=== PATIENT | female | born 1990 | race African-American/Black ===

== ENCOUNTER 2019-04-03 09:45 | Emergency (ER) | payer MEDICAID ==
[~2019-04-03] VITALS: Ht 185.4 cm; Wt 127.0 kg
[2019-04-03] MEDS ORDERED: HYDROCODONE/ACETAMINOPHEN 5/325MG TABLET PO ONE (12:30)
[2019-04-03] MEDS ORDERED: IBUPROFEN 600MG TABLET PO ONE (12:30)
[2019-04-03 14:51] VITALS: BP 158/86
== END 2019-04-03 14:53 | disposition home or self-care (01) ==
LOC: ER 09:45
DX: S10.81XA Abrasion of other specified part of neck, initial encounter (principal); Y04.0XXA Assault by unarmed brawl or fight, initial encounter; T71.9XXA Asphyxiation due to unspecified cause, initial encounter; Y93.89 Activity, other specified; F10.129 Alcohol abuse with intoxication, unspecified; Y90.9 Presence of alcohol in blood, level not specified; W18.39XA Other fall on same level, initial encounter; Y92.038 Other place in apartment as the place of occurrence of the external cause; I10 Essential (primary) hypertension
CPT/HCPCS: 70486; 70490; 81025; 99284

== ENCOUNTER 2020-09-07 23:14 | Emergency (ER) | payer MEDICAID, OTHER ==
[~2020-09-07] VITALS: Ht 185.4 cm; Wt 118.0 kg
[2020-09-07 23:22] VITALS: BP 152/88
[2020-09-07] MEDS ORDERED: ACETAMINOPHEN 325MG TABLET PO ONE (23:45)
[2020-09-08] MEDS ORDERED: IBUP-2029 MT (00:25)
== END 2020-09-08 00:39 | disposition home or self-care (01) ==
LOC: ER 23:49
DX: J02.9 Acute pharyngitis, unspecified (principal); H92.01 Otalgia, right ear; I10 Essential (primary) hypertension
CPT/HCPCS: 81025; 99282

== ENCOUNTER 2020-10-28 11:35 | Emergency (ER) | payer OTHER ==
[~2020-10-28] VITALS: Ht 185.4 cm; Wt 127.0 kg
[~2020-10-28 11:35] MED LIST: IBUP-2029 MT
[2020-10-28] MEDS ORDERED: SODIUM CHLORIDE 0.9% 1,000 ML IV ONE (12:15)
[2020-10-28] MEDS ORDERED: KETOROLAC 15MG/ML VIAL IV ONE (12:15)
[2020-10-28] MEDS ORDERED: ALBU6.7H9 INH (12:37)
[2020-10-28 12:50] VITALS: BP 153/95
== END 2020-10-28 12:54 | disposition home or self-care (01) ==
LOC: ER 11:35
DX: U07.1 COVID-19 (principal); M54.9 Dorsalgia, unspecified; R00.0 Tachycardia, unspecified; I10 Essential (primary) hypertension
CPT/HCPCS: 71045; 96374; 99284; C9803; J1885; J7030; U0003; U0005

== ENCOUNTER 2020-11-03 11:12 | Emergency (ER) | payer OTHER ==
[~2020-11-03] VITALS: Ht 175.3 cm; Wt 100.0 kg
[~2020-11-03 11:12] MED LIST changes: +ALBU6.7H9 INH
[2020-11-03 11:42] VITALS: BP 122/85
== END 2020-11-03 13:10 | disposition home or self-care (01) ==
LOC: ER 11:12
DX: U07.1 COVID-19 (principal); I10 Essential (primary) hypertension; J45.909 Unspecified asthma, uncomplicated
CPT/HCPCS: 99281

== ENCOUNTER 2022-06-20 17:17 | Emergency (ER) | payer OTHER ==
[~2022-06-20] VITALS: Ht 185.4 cm; Wt 127.0 kg
[~2022-06-20 17:17] MED LIST changes: +ALBU6.7H3 INH; -ALBU6.7H9 INH
[2022-06-20 18:10] VITALS: BP 154/99
[2022-06-20 21:29] LABS: BASOPHILS % 0.4 % (0.0-2.0); EOSINOPHILS % 2.2 % (0.0-5.0); HEMATOCRIT. 36.8 % (36.0-48.0); HEMOGLOBIN. 11.7 g/dL (12.0-16.0); LYMPHOCYTES % 28.5 % (20.0-50.0); MEAN CORPUSCULAR HEMOGLOBIN 24.3 pg (28.0-32.0); MEAN CORPUSCULAR VOLUME 76.3 fL (81.0-99.0); MEAN PLATELET VOLUME 9.3 fl (7.4-10.4); MONOCYTES % 8.4 % (2.0-8.0); NEUTROPHILS % 60.5 % (40.0-76.0); PLATELET 374 x1000/uL (130-400); RED BLOOD CELL COUNT 4.83 mill/uL (4.2-5.4); RED CELL DISTRIBUTION WIDTH 18.2 % (11.6-14.6)
[2022-06-20 21:36] LABS: CHLORIDE 105 mEq/L (98-107)
[2022-06-20 21:38] LABS: HCG SCREEN NEGATIVE
[2022-06-20 21:44] LABS: B-HCG QUANTITATIVE < 1 mIU/mL (<3)
== END 2022-06-21 00:45 | disposition home or self-care (01) ==
LOC: ER 17:17
DX: N92.5 Other specified irregular menstruation (principal); I10 Essential (primary) hypertension; J45.909 Unspecified asthma, uncomplicated; Z79.899 Other long term (current) drug therapy; Z79.51 Long term (current) use of inhaled steroids
CPT/HCPCS: 36415; 80053; 81025; 84702; 84703; 85025; 86850; 86900; 99283